=== PATIENT | male | born 1995 | race Caucasian/White ===

== ENCOUNTER → 2018-10-31 | Emergency (ER) | payer BC ==
[~2018-10-31] VITALS: Ht 172.7 cm; Wt 69.2 kg
[~2018-10-31] MED LIST: CEPH-572 PO
[2018-10-31 21:44] VITALS: BP 110/53
== END | disposition home or self-care (01) ==
LOC: ER 21:07
DX: L03.113 Cellulitis of right upper limb (principal); Z91.030 Bee allergy status
CPT/HCPCS: 99284